=== PATIENT | male | born 1950 | race African-American/Black ===

== ENCOUNTER 2023-10-14 13:29 | Outpatient (CLI) | payer MEDICARE, SELFPAY ==
--- NOTE | ~2023-10-14 | PE_ITS ---
EXAMINATION: PET_PETPSMAST_PT DATE: 10/14/2023 15:56 INDICATION: Prostate cancer TECHNIQUE: 8.611 mCi of pipflufolastat F-18 (18-F-DCFPyL) was administered i.v. Low dose computed to mography (CT) images were acquired from the base of the brain to the base of the brain to the proxima l thighs for attenuation correction and anatomic localization. Positron emission tomography (PET) qing ges were acquired in the same distribution beginning 97 minutes after injection. Images including fus ed PET/CT images were reconstructed in axial, coronal, and sagittal planes. Automated exposure contro l technique was employed. The dose-length product was 481.20mGy-cm. COMPARISON: Bone scan and CT dated 04/23/2004 FINDINGS: Head/neck: Typical pattern of symmetric physiologic increased activity in the lacrimal, parotid and submandibula r glands as well as along the mucosa of the nasal and oral cavities, the sara-, naso- and hypopharynx, the glottis and esophagus. There is also a typical pattern of symmetric tiny foci of mild likely phy siologic neural ganglia uptake at a few bilateral cervical neural foramina. No pathologically enlarge d cervical lymphadenopathy or suspicious foci of increased uptake in the visualized head or neck. Chest: Mild emphysema. Mild discoid atelectasis/scarring at the dependent bilateral lower lobes. No suspicio us pulmonary nodules, pneumonia, pulmonary edema or pleural effusion. Heart size is normal. No perica rdial effusion. Thoracic aorta is normal in caliber. No pathologically enlarged or abnormally PSMA av id thoracic lymphadenopathy. Abdomen/pelvis/proximal thighs: Physiologic renal accumulation and excretion of activity in the kidneys, bladder and along the midpor tion of the right ureter. There are couple subcentimeter high attenuation likely proteinaceous/hemorr hagic cysts at both kidneys. Suture line along the lower pole the right kidney suggesting prior parti al right nephrectomy. Normal degree and slightly heterogenous pattern of increased uptake throughout the liver and spleen without radiologic correlate or dominant PSMA avid lesion. Cholecystectomy clips at the gallbladder fossa. The pancreas and bilateral adrenal glands are normal. Moderate uptake scat tered throughout the bowels with typical duodenal and proximal jejunal predominance and without radio logic correlate, also likely physiologic. Small small foci of mild likely physiologic neural ganglia uptake at a few of the bilateral lower lumbar and sacral neural foramina. No other abnormal foci of i ncreased uptake or pathologically enlarged lymphadenopathy in the abdomen, pelvis or proximal thighs. Musculoskeletal: No suspicious lytic, blastic or abnormally PSMA avid bone lesions. IMPRESSION: 1. No lesion suspicious for metastatic disease. Reviewed, dictated and finalized at location A. [facility] [employer]
== END 2023-10-14 13:30 | disposition home or self-care (01) ==
PROVIDERS: PCP Family Medicine; Visit Provider Urology
DX: C61 Malignant neoplasm of prostate (principal)
CPT/HCPCS: 78815; A9595